=== PATIENT | female | born 1955 | race Caucasian/White ===

== ENCOUNTER 2022-08-20 13:49 | Emergency (ER) | payer OTHER, SELFPAY ==
[2022-08-20 13:51] VITALS: BP 148/110; PULSE 91; RESP 16; TEMP 36.3; O2SAT 96; BMI 36.8
--- NOTE | 2022-08-20 13:55 | ED.RN ---
SPOKE W/ DR. ALMANZA REGARDING PATIENT PRESENTING SYMPTOMS AND WITH LKW BEING YESTERDAY GREATER THAN 24HOURS, NO STROKE ALERT IS NEEDED.
--- NOTE | 2022-08-20 14:18 | EKG12_ITS ---
Test Reason : Blood Pressure : / mmHG Vent. Rate : 072 BPM Atrial Rate : 072 BPM P-R Int : 160 ms QRS Dur : 082 ms QT Int : 376 ms P-R-T Axes : 024 -01 -04 degrees QTc Int : 411 ms Normal sinus rhythm Minimal voltage criteria for LVH, may be normal variant ( R in aVL ) Inferior infarct , age undetermined Abnormal ECG Confirmed by ANAY GERMAN, MIMI ([id number]), brands editor JOSE SINCLAIR ([id number]) on 08/22/2022 9:54:00 AM Referred By: PRINCESS Confirmed By:MIMI CUEVA MD
[2022-08-20 15:11] LABS: Absolute Lymphocyte Count 2.96 X10^3/uL (0.83-4.51); Absolute Neutrophil Count 5.2 X10^3/uL (2.0-7.7); Basophil# 0.03 X10^3/uL; Basophil% 0.3 % (0-1); Eosinophil# 0.19 X10^3/uL; Eosinophils% 2.1 % (0-5); Hematocrit 40.2 % (37-47); Hemoglobin 13.6 g/dL (12.0-15.0); Lymphocyte # 2.96 X10^3/ul (0.83-4.51); Lymphocyte % 33.3 % (19-41); Mean Corp Hgb Conc 33.8 g/dL (32-36); Mean Corpuscular Hgb 29.5 pg (27.0-32.0); Mean Corpuscular Volume 87.2 fL (81-99); Mean Platelet Vol. 8.7 fl (6.2-12.0); Monocyte# 0.51 X10^3/uL; Monocyte% 5.7 % (0-10); NRBC Flagged by Analyzer 0 % (0-5); Neutrophil # 5.15 X10^3/uL (2.7-7.7); Neutrophil % 58.1 % (47-70); Platelet Count 256 K/mm3 (150-450); RBC Distribution Width CV 12.2 % (11.6-14.6); RBC Distribution Width SD 38.9 fl (35.1-43.9); Red Blood Count 4.61 M/mm3 (4.2-5.4); White Blood Count 8.9 K/mm3 (4.4-11.0)
--- NOTE | 2022-08-20 15:20 | EX.ED.DYSGE1 ---
HPI History of Present Illness Chief Complaint: Dizziness Informant: patient Onset/Context/Timing Onset: Yesterday Context: Sudden Onset Timing: Intermittent and Lasts (Approximately 1 minute) Quality: Numbness, tingling Location: Right upper and lower extremities Worsened by: Nothing Relieved by: Laying down and elevating her legs Narrative Narrative: Patient presents with numbness and tingling to her right arm and leg that has been intermittent since yesterday. Patient states that last for approximately 1 minute and then resolved. Patient denies any weakness with this. Patient states that is her entire right arm and right leg to go numb and tingling. Patient admits to some lightheadedness with the symptoms. Patient denies any vertigo symptoms. Patient states her numbness and tingling got better once when she laid down and elevate her legs. Patient states that she checked her blood pressure when she was having the symptoms and it was lower than it normally is. Patient states her blood pressure is normally 140/62 but when she checked it it was 126/62. Currently, patient denies any symptoms. [facility] Medical History (Updated 08/20/22 @ 18:[address] Peterson Bonner DO) Hypertension Home Medications famotidine 20 mg tablet 20 mg PO BID ##28 03/26/17 [Rx Last Taken Unknown] Allergy/AdvReac Type Severity Reaction Status Date / Time No Known Allergies Allergy Verified 08/20/22 13:55 Surgical History no surgical history no surgical history Social History Smoking Status: Never smoker ROS ROS ED Constitutional Constitutional ED: Denies chills or fever(s) Eyes Eyes: Denies blurry vision or change in vision ENT ENT ED: Denies rhinorrhea or sore throat Cardiovascular Cardiovascular: Denies chest pain or palpitations Respiratory/Chest Respiratory/Chest: Denies cough or dyspnea Gastrointestinal Gastrointestinal: Denies nausea or vomiting Genitourinary Genitourinary ED: Denies dysuria or hematuria Musculoskeletal Musculoskeletal: Denies back pain or neck pain Integumentary Denies abscess or rash Neurologic Neurologic: Reports paresthesias RUE and RLE; Denies headache(s) or weakness Allergic/Immunologic Allergic/Immunologic ED: Denies mouth swelling or urticaria EXAM Physical Exam Const Vital Signs: 08/20/22 13:51 08/20/22 16:31 08/20/22 16:31 Temperature 97.3 F L Temperature Source Temporal Pulse Rate 91 70 Respiratory Rate 16 18 Blood Pressure 148/110 H 157/83 H Blood Pressure Mean 122 107 Pulse Ox 96 99 98 Oxygen Delivery Method Room Air Room Air Room Air Positive well nourished, well developed and obese General Appearance ED: well developed and NAD Nutritional Appearance: obese HEENT Reports moist mucous membranes Neck supple and no JVD Resp normal respiratory effort and clear to auscultation bilaterally Cardio regular rate, regular rhythm and no murmurs GI normal to inspection, nondistended, normoactive bowel sounds and non-tender Palpation: soft Extremity normal to inspection General Extremety ED: Negative for edema or tenderness General Extremity: Negative for edema Neuro oriented x3, CN's II-XII intact bilaterally and no sensory deficits noted Sensorium / Orientation: alert Motor Exam: strength 5/5 throughout Psych mental status grossly normal Skin no rashes or lesions noted MDM MDM MDM Narrative Medical decision making narrative: Differential diagnosis includes electrolyte abnormality, anemia, infection, cardiac dysrhythmia, cardiac ischemia, stroke, and TIA. EKG will be obtained to assess for cardiac dysrhythmia and cardiac ischemia. Chest x-ray will be obtained to assess for pneumonia and pneumothorax. CBC will be obtained to assess for anemia and leukocytosis. Basic metabolic profile will be obtained to assess for electrolyte abnormality and renal function. PT with INR and PTT will be obtained to assess for coagulopathy. CT scan of the brain will be obtained to assess for stroke. Lab Data Attestation: I reviewed the patient's lab results. Lab results narrative: CBC was reviewed and was within normal limits. Basic metabolic profile was reviewed and was essentially within normal limits. PT was INR and PTT were reviewed and were within normal limits. Labs: Laboratory Results - last 24 hr 08/20/22 08/20/22 08/20/22 15:00 15:00 15:00 WBC 8.9 RBC 4.61 Hgb 13.6 Hct 40.2 MCV 87.2 MCH 29.5 MCHC 33.8 RDW Std Deviation 38.9 RDW Coeff of Lars 12.2 Plt Count 256 MPV 8.7 Immature Gran % (Auto) 0.500 Neut % (Auto) 58.1 Lymph % (Auto) 33.3 [place] % (Auto) 5.7 Eos % (Auto) 2.1 Baso % (Auto) 0.3 Absolute Neuts (auto) 5.2 Absolute Lymphs (auto) 2.96 Nucleated RBC % 0 PT 12.7 INR 1.0 APTT 27.3 Sodium 139 Potassium 4.0 Chloride 110 H Carbon Dioxide 26.0 Anion Gap 3 L BUN 16 Creatinine 0.77 Estim Creat Clear Calc 55.70 Est GFR (MDRD) Af Amer 97 Est GFR (MDRD) Non-Af 81 BUN/Creatinine Ratio 20.9 H Glucose 93 Calcium 9.3 Radiography Diagnostic Testing: Clinical Impression(s) from Imaging Studies Chest X-Ray 08/20/22 16:15 IMPRESSION: No radiographic evidence of acute cardiopulmonary disease. Electronically Signed: Velasquez Hahn DO at 16:37 EDT , Brain CT 08/20/22 16:18 IMPRESSION: Normal unenhanced CT scan of the brain. Electronically Signed: Velasquez Hahn DO at 16:41 EDT , Portable 1 view chest x-ray was obtained. On my independent interpretation, lung coleman are clear. There is normal cardiac silhouette. Bony thorax is normal. There is no acute process noted. Radiologist also interpreted the x-ray and agrees. CT scan of the brain was obtained. There is no acute intracranial abnormality. This was interpreted by the radiologist and was also independently reviewed by myself. EKG Initial EKG: Attestation: I personally reviewed and interpreted this EKG as follows: Interpretation: Sinus Rhythm (72) and Non-Specific ST Changes Comments: EKG was obtained. On my independent interpretation, it showed a normal sinus rhythm with a rate of 72. [place] interval, QRS interval, and QTc intervals were all normal. [place] was normal. There are nonspecific ST-T wave changes. Prior EKG tracings: available for review Prior: Unchanged (03/26/2017) Treatment and Re-Evaluation :: Patient was advised of her findings. Patient had no further episodes of tingling here in the emergency department. Patient was instructed to drink plenty of fluids. Patient was instructed to follow-up with her primary care physician for further evaluation. Patient understands and is agreeable with plan. All questions were answered. Discharge Plan Triage Chief Complaint: Dizziness Other Complaint: Numb/Ting ED Provider: Peterson Bonner Dx/Rx/DC Orders Clinical Impression: Paresthesias, Hypertension Instructions: ED Paraesthesias Prescriptions: No Action famotidine 20 MG tablet 20 mg PO BID Qty: 28 0RF Primary Care Provider: Boone Estes Referrals: Boone Estes MD [Primary Care Provider] - 3-5 Days Disposition Disposition: Home, Self Care
[2022-08-20 15:23] LABS: Anion Gap 3 (5-15); BUN 16 mg/dL (7-18); BUN/Creat Ratio 20.9 RATIO (10-20); Calcium,Total 9.3 mg/dL (8.5-10.1); Chloride 110 mmol/L (98-107); Creatinine, Serum 0.77 mg/dL (0.55-1.02); EST Glomerular Filtration Rate 81 mL/min (>60); Est Glom Filt Rate - Afr Amer 97 mL/min (>60); Glucose 93 mg/dL (74-106); Sodium Level 139 mmol/L (136-145)
[2022-08-20 15:28] LABS: Prothrombin Time (Protime)PT. 12.7 SECONDS (11.7-14.9)
[2022-08-20 15:29] LABS: Partial Thromboplast Time 27.3 Seconds (24.1-36.2)
--- NOTE | 2022-08-20 16:15 | RAD_ITS ---
INDICATION: Stroke EXAMINATION/TECHNIQUE: X-RAY - XR Chest 1 View COMPARISON: March 26, 2017. FINDINGS: LINES/DEVICES: None. LUNGS: No consolidation, edema or effusion. No pneumothorax. MEDIASTINUM AND CARDIOVASCULAR STRUCTURES: Cardiac silhouette not enlarged. Central airways and mediastinal contour are unremarkable. BONES AND SOFT TISSUES: Mild degenerative vertebral changes. RAD/Chest 1 View (Portable) IMPRESSION: No radiographic evidence of acute cardiopulmonary disease. Electronically Signed: Velasquez Hahn DO at 16:37 EDT ,
--- NOTE | 2022-08-20 16:18 | CT_ITS ---
STUDY: CT BRAIN WITHOUT CONTRAST REASON FOR EXAM: Female, 66 years old. Paresthesias RADIATION DOSAGE (If Supplied By Facility): CTDIvol = ( 47.06 ) mGy, DLP = ( 890.33 ) mGycm TECHNIQUE: Transaxial CT imaging of the brain was performed without administration of intravenous contrast material. Individualized dose optimization techniques were used for this CT. COMPARISON: No relevant priors. FINDINGS: Normal soft tissue structures. Normal calvarium. Normal size ventricles and extra-axial spaces for the patient''s age. Normal white matter tracts of the cerebral hemispheres. Normal basal ganglia and thalami. Normal brainstem. Normal cerebellum. There is no intracranial hemorrhage. There are no findings of an acute ischemic infarction. Normal visualized paranasal sinuses. CT/Brain/Head without Contrast IMPRESSION: Normal unenhanced CT scan of the brain. Electronically Signed: Velasquez Hahn DO at 16:41 EDT ,
[2022-08-20 16:31] VITALS: BP 157/83; PULSE 70; RESP 18; O2SAT 98; O2SAT 99
[2022-08-20 18:19] VITALS: BP 131/59; PULSE 83; RESP 11; O2SAT 96
== END 2022-08-20 18:23 | disposition home or self-care (01) ==
PROVIDERS: Emergency Provider Emergency Medicine; PCP Family Medicine; Visit Provider Emergency Medicine
DX: R20.2 Paresthesia of skin (principal); I10 Essential (primary) hypertension; E66.9 Obesity, unspecified; Z68.36 Body mass index [BMI] 36.0-36.9, adult
CPT/HCPCS: 70450; 71045; 80048; 85025; 85610; 85730; 93005; 99284